=== PATIENT | female | born 1965 | race Caucasian/White ===

== ENCOUNTER → 2024-06-04 | Outpatient (CLI) | payer BC, SELFPAY ==
--- NOTE | 2024-06-04 16:00 | XR_ITS ---
Examination: Carotid arterial duplex scan, ultrasound. Date and time of exam: June 04, 2024 1559 hours INDICATIONS: Dizziness episodes 8 months with ringing sound in the ears Technique: Multiple sonographic images have been obtained of the carotid arteries and vertebral arteries, B-mode/grayscale imaging and Doppler spectral analysis and color flow Peak systolic and diastolic velocities have been recorded. Systolic diastolic ratios have been calculated. Findings: Right peak systolic velocities: Distal internal carotid artery peak systolic velocity is 0.6 M/sec Proximal internal carotid artery peak systolic velocity is 0.4 M/sec Carotid bifurcation peak systolic velocity is 0.5 M/sec External carotid artery peak systolic velocity is 0.6 M/sec Vertebral artery flow is antegrade. Left peak systolic velocities: Distal internal carotid artery peak systolic velocity is 0.7 M/sec Proximal internal carotid artery peak systolic velocity is 0.6 M/sec Carotid bifurcation peak systolic velocity is 0.6 M/sec External carotid artery peak systolic velocity is 0.5 M/sec Vertebral artery flow is antegrade Doppler waveform analysis demonstrates no spectral broadening Impression: Right internal carotid artery demonstrates 0-10% stenosis. Left internal carotid artery demonstrates 0-10% stenosis.
== END | disposition home or self-care (01) ==
PROVIDERS: Referring Provider Family Medicine; Visit Provider Family Medicine
DX: R42 Dizziness and giddiness (principal)
CPT/HCPCS: 93880

== ENCOUNTER 2024-06-17 03:17 | Emergency (ER) | payer BC, SELFPAY ==
[2024-06-17 03:18] VITALS: BMI 24.6
[2024-06-17 03:30] VITALS: BP 160/85; PULSE 73; RESP 19; TEMP 36.4; O2SAT 98
--- NOTE | 2024-06-17 03:31 | EDNOTE_ITS ---
ED Chest Pain RME/HPI General Chief Complaint: Chest Pain Stated Complaint: CHEST PAIN Time Seen by Provider: 06/17/24 03:23 Arrival date/time: 06/17/24 03:17 RME / HPI RME / HPI narrative: This section includes all my notes and documentations, including HPI, PE, and ED course. Deandre Johnson MD HPI: 59yo female with a history of aFib, sleep apnea accompanied by her presents to the ED for a chief complaint of chest pain x 0030. Patient states her pain is intermittent, lasting for 30 seconds at a time. She describes her pain as stabbing in nature, rating her worst pain a 7-9 out of 10. Patient states she woke up at 0030 having significant chest pain, reporting she went to bed feeling normal at 2130. She states her pain progressively got worse, so she came in for evaluation. She reports associated nausea. She denies any vomiting, palpitations, shortness of breath or any other associated symptoms. She is not on any medications. [employer]visor [employer] is Dr. Mcconnell. She currently rates her pain a 3 out of 10 in severity. No other complaints reported. ROS: All negative except as documented in HPI. Physical Exam: General: Alert and oriented. Appears slightly anxious. Eyes: Conjunctivae and lids clear. ENT: No nasal congestion. Neck: Supple. Heart: RRR. Lungs: No respiratory distress. Good air movement. No rhonchi, wheezing, rales. Abdomen: Soft and nontender. Legs: No clubbing, cyanosis, edema. Skin: Warm and dry. Neuro: Alert and oriented X 3. I reviewed all diagnostic test results. My interpretation of the EKG is sinus rhythm with no acute ST changes. Blood tests unremarkable, including negative troponin X 2. At this point, diagnoses include chest pain probably due to anxiety. Treatment here included Xanax 0.25 mg given. Significant improvement noted. Recommended more outpatient cardiac workup. Based on my best medical judgment, made decision no further evaluation or treatment indicated at this time. Patient understands and agrees to the discharge instructions customized and printed, see below. Discharge instructions from Dr. Johnson: 1. After extensive evaluation, there is no life-threatening condition.? Such as heart attack or pulmonary embolism (blood clots in your lungs) or pneumothorax (collapsed lung). 2. Your symptoms may be due to underlying stress or anxiety or nerves.? This is fairly common. 3. Take Xanax as needed.? Whether this helps or not will be valuable information to your private doctors. 4. See a private doctor on 06/24/2024 for recheck and further care. To make sure there is no serious underlying heart condition, ask to help you get more tests for your heart that cannot be done here in the ER.? Such as Holter Monitor (cardiac monitoring at home from a day to even a month), heart stress test (on treadmill or with medication), echocardiogram (imaging of your heart structures), heart catherization (checking for blockages in your heart arteries), and a referral to see a [employer]visor [employer]. 5. Seek immediate medical care with worsening or with any concerns.?? Deandre Johnson MD Related Data Home Medications ?Medication ?Instructions ?Recorded ?Confirmed triamcinolone acetonide 0.1 % 1 applic topical TID PRN dry skin 09/24/23 09/24/23 topical cream / eczema Previous Rx's ?Medication ?Instructions ?Recorded alprazolam 0.25 mg tablet (Xanax) 0.25 mg PO BID PRN a nxiety #10 tabs 06/17/24 Allergies Allergy/AdvReac Type Severity Reaction Status Date / Time No Known Allergies Allergy Verified 02/17/24 21:02 Review of Systems Review of Systems Systems Reviewed: All systems reviewed, normal except as documented ED Exam Narrative Physical exam: As noted in HPI. Course Course Course Narrative: CXR is ordered for determining the etiology of chest pain. Quality Measures none Orders Category Date Time Status EKG (ED ONLY) *Do not use* NOW Care 06/17/24 03:23 Completed EKG (ED Only) Stat Exams 06/17/24 03:23 Ordered BNP [B-Type Natriuretic Peptide] Stat Lab 06/17/24 03:42 Completed CBC Stat Lab 06/17/24 03:42 Completed CMP [Comprehensive Metabolic Panel] Stat Lab 06/17/24 03:42 Completed D-Dimer Stat Lab 06/17/24 03:42 Completed Magnesium Stat Lab 06/17/24 03:42 Completed TSH [Thyroid Stimulating Hormone] Stat Lab 06/17/24 03:42 Completed Troponin I Stat Lab 06/17/24 03:42 Completed Troponin I Stat Lab 06/17/24 04:40 Completed UA, C/S IF [Urinalysis, C/S if Indicated] Stat Lab 06/17/24 03:34 Ordered ALPRazoLAM [Xanax] Med 06/17/24 03:33 Discontinued 0.25 mg PO X1 ONE Aspirin Chew Med 06/17/24 03:33 Discontinued 324 mg PO X1 ONE Vital Signs Vital signs: Vital Signs Temperature 97.6 F 06/17/24 03:30 Pulse Rate 73 06/17/24 03:30 Respiratory Rate 19 06/17/24 03:30 Blood Pressure 160/85 H 06/17/24 03:30 Pulse Oximetry (%) 98 06/17/24 03:30 Oxygen Delivery Method Room Air 06/17/24 03:30 Chest Pain MDM Narrative MDM Narrative:: Scribe Attestation: 06/17/24 Ellie Bains am scribing for and in the presence of Dr. Johnson. Patient data External records reviewed:: [facility] previous records (Per chart review, patient was seen here on 02/17/24 for chest pressure.) Clinical information provided by:: patient Social determinants that could affect healthcare access:: substance use (former tobacco smoker) Patient has the following chronic illnesses:: aFib, sleep apnea How is presenting disease/condition affected by chronic disease/condition?: uneffected by Evaluation data The following diagnostics were reviewed and interpreted by me:: lab results, radiology exam(s) and EKG tracing(s) (My interpretation of the EKG: NSR (80 bpm) with no ST-T changes. Deandre Johnson MD) Lab and/or radiology exams considered but not ordered:: none Interpretation Summary: Chest pain of probable anxiety Medications / Prescriptions Medications or Prescriptions considered but not ordered:: none Medication administrations:: Medication Administration History Discontinued Medications Alprazolam (Alprazolam 0.25 Mg Tablet) 0.25 mg PO X1 ONE Stop: 06/17/24 03:34 Last Admin: 06/17/24 03:49 Dose: 0.25 mg Documented By: RONALD Aspirin (Aspirin 81 Mg Chew) 324 mg PO X1 ONE Stop: 06/17/24 03:34 Last Admin: 06/17/24 03:47 Dose: 324 mg Documented By: RONALD ASA and Xanax Consultations Consultation(s) initiated? (list below): No Diagnosis Chest Pain Differential Diagnosis: pneumothorax, stable angina, unstable angina pectoris, atypical chest pain, st elevation myocardial infarction, costochondritis and chest pain Most likely diagnosis given after review of the tests above:: Chest pain of probable anxiety Admission Indicated Admission indicated?: not indicated Explain why admission is indicated or not indicated:: No criteria for admission Admission Request Was there a request for admission?: No Disposition Plan Disposition Plan: Discharge Discharge Attestation Discharge Attestation: The patient and all family members were given an opportunity to ask questions and understood the discharge instructions. Discharge instructions specifically effects, indications for sooner follow up or return to the emergency department, and the expected course of current diagnosis. Patient condition: Stable Discharge Plan Plan Patient Disposition: HOME (Self Care) Prescriptions/Referrals Prescriptions/Med Rec: New alprazolam [Xanax] 0.25 mg tablet 0.25 mg PO BID PRN (Reason: anxiety) Qty: 10 0RF No Action triamcinolone acetonide 0.1 % Cream 1 applic TOPICAL TID PRN (Reason: dry skin / eczema) Referrals: Mynor Hurt MD [Primary Care Provider] - In 1 week Problem List Clinical Impression: Chest pain Patient/Caregiver Discharge Instructions Discharge Activity: activity as tolerated Education Materials: ED Chest Pain, Uncertain Cause Additional Instructions: Discharge instructions from Dr. Johnson: 1. After extensive evaluation, there is no life-threatening condition.? Such as heart attack or pulmonary embolism (blood clots in your lungs) or pneumothorax (collapsed lung). 2. Your symptoms may be due to underlying stress or anxiety or nerves.? This is fairly common. 3. Take Xanax as needed.? Whether this helps or not will be valuable information to your private doctors. 4. See a private doctor on 06/24/2024 for recheck and further care. To make sure there is no serious underlying heart condition, ask to help you get more tests for your heart that cannot be done here in the ER.? Such as Holter Monitor (cardiac monitoring at home from a day to even a month), heart stress test (on treadmill or with medication), echocardiogram (imaging of your heart structures), heart catherization (checking for blockages in your heart arteries), and a referral to see a Supervisor [employer]. 5. Seek immediate medical care with worsening or with any concerns.?? Print Language: Jordanian Stand Alone Forms: Lili Award Info., Patient Portal Info Letter
[2024-06-17] MEDS: ASPIRIN 81 MG CHEW 324 MG PO (03:47)
[2024-06-17] MEDS: ALPRazoLAM 0.25 MG TABLET PO (03:49)
[2024-06-17 03:50] LABS: Basophils # (Auto) 0.1 Thou/mm3 (0.0-0.2); Basophils % (Auto) 1 % (0-2.5); Eosinophils # (Auto) 0.2 Thou/mm3 (0.0-0.5); Eosinophils % (Auto) 3 % (0-10); Hemoglobin 13.8 g/dL (12.0-16.0); Immature Granulocytes % (Auto) 0 % (0-0); Immature Granulocytes Auto 0.01 Thou/mm3 (0.00-0.00); Lymphocytes # (Auto) 2.7 Thou/mm3 (1.0-4.8); Lymphocytes % (Auto) 43 % (10-50); Mean Corpuscular HGB Conc 33.7 g/dl (31.0-37.0); Mean Corpuscular Hemoglobin 28.9 pg (25.0-35.0); Mean Corpuscular Volume 86 fL (80-100); Monocytes # (Auto) 0.4 Thou/mm3 (0.0-0.8); Monocytes % (Auto) 6 % (0-12); Neutrophils # (Auto) 2.9 Thou/mm3 (1.8-7.7); Neutrophils % (Auto) 47 % (37-80); Nucleated Red Blood Cell % 0 /100 WBC (0); Platelet Count 325 Thou/mm3 (140-440); RDW Standard Deviation 40.3 fL (36.4-46.3); Red Blood Count 4.78 Miln/mm3 (4.00-5.20); White Blood Count 6.2 Thou/mm3 (3.6-11.0)
[2024-06-17 04:05] VITALS: BP 158/76; PULSE 62; RESP 97; TEMP 36.7; O2SAT 97
[2024-06-17 04:05] LABS: B-Type Natriuretic Peptide 41 pg/mL (0-100)
[2024-06-17 04:10] LABS: Alanine Aminotransferase 12 U/L (10-49); Albumin, Serum 4.5 gm/dL (3.4-4.8); Albumin/Globulin Ratio 1.7 (1.2-2.2); Alkaline Phosphatase 59 U/L (46-116); Anion Gap 7 (7-16); Aspartate Amino Transferase 16 U/L (0-34); BUN/Creatinine Ratio 14 Ratio (12-20); Bilirubin,Total 0.4 mg/dL (0.3-1.2); Blood Urea Nitrogen 10 mg/dL (9-23); Calcium 10.1 mg/dL (8.3-10.6); Calcium (Corrected) 10.1 mg/dL (8.5-10.1); Carbon Dioxide 26.8 mMol/L (20.0-31.0); Chloride 112 mMol/L (98-107); Creatinine (Component) 0.7 mg/dL (0.6-1.3); Estimated Creatinine Clearance 89.3 mL/min (>60); Globulin 2.7 gm/dL (2.3-3.5); Glucose 111 mg/dL (74-106); Magnesium 1.9 mg/dL (1.6-2.6); Osmolality,Calculated 290 (275-295); Potassium 4.1 mMol/L (3.4-5.1); Sodium 146 mMol/L (136-145); Thyroid Stimulating Hormone 0.45 uIU/mL (0.55-4.78); Total Protein 7.2 gm/dL (5.7-8.2); Troponin I < 0.020 ng/mL (0.0-0.045); eGFR > 60 See Note
[2024-06-17 04:11] LABS: D-Dimer < 250 ng/mL (<600)
[2024-06-17 05:13] LABS: Troponin I < 0.020 ng/mL (0.0-0.045)
[2024-06-17 05:26] VITALS: BP 140/73; PULSE 75; RESP 15; TEMP 36.7; O2SAT 96
== END 2024-06-17 05:30 | disposition home or self-care (01) ==
PROVIDERS: Emergency Provider Emergency Medicine; PCP Family Medicine
DX: R07.9 Chest pain, unspecified (principal); R11.0 Nausea
CPT/HCPCS: 36415; 80053; 81001; 83735; 83880; 84443; 84484; 85025; 85379; 93005; 99283; A9270

== ENCOUNTER → 2024-08-26 | Outpatient (CLI) | payer BC, SELFPAY ==
[2024-08-26 08:38] LABS: Basophils # (Auto) 0.1 Thou/mm3 (0.0-0.2); Basophils % (Auto) 1 % (0-2.5); Eosinophils # (Auto) 0.2 Thou/mm3 (0.0-0.5); Eosinophils % (Auto) 3 % (0-10); Hematocrit 38.5 % (36.0-46.0); Hemoglobin 12.6 g/dL (12.0-16.0); Immature Granulocytes % (Auto) 1 % (0-0); Immature Granulocytes Auto 0.03 Thou/mm3 (0.00-0.00); Lymphocytes # (Auto) 2.3 Thou/mm3 (1.0-4.8); Lymphocytes % (Auto) 39 % (10-50); Mean Corpuscular HGB Conc 32.7 g/dl (31.0-37.0); Mean Corpuscular Hemoglobin 29.3 pg (25.0-35.0); Mean Corpuscular Volume 90 fL (80-100); Monocytes # (Auto) 0.5 Thou/mm3 (0.0-0.8); Monocytes % (Auto) 8 % (0-12); Neutrophils % (Auto) 49 % (37-80); Nucleated Red Blood Cell % 0 /100 WBC (0); Platelet Count 322 Thou/mm3 (140-440); RDW Standard Deviation 43.8 fL (36.4-46.3)
[2024-08-26 08:49] LABS: T4 (Thyroxine) 6.9 mcg/dL (4.5-10.9)
[2024-08-26 08:50] LABS: Vitamin D 25 Hydroxy Total 20.4 ng/mL (7.3-40.2)
[2024-08-26 08:53] LABS: Alanine Aminotransferase 10 U/L (10-49); Albumin, Serum 4.3 gm/dL (3.4-4.8); Albumin/Globulin Ratio 1.9 (1.2-2.2); Alkaline Phosphatase 59 U/L (46-116); Anion Gap 7 (7-16); Aspartate Amino Transferase 11 U/L (0-34); BUN/Creatinine Ratio 19 Ratio (12-20); Bilirubin,Total 0.4 mg/dL (0.3-1.2); Blood Urea Nitrogen 13 mg/dL (9-23); Calcium 9.4 mg/dL (8.3-10.6); Calcium (Corrected) 9.4 mg/dL (8.5-10.1); Carbon Dioxide 28.2 mMol/L (20.0-31.0); Cardiac Risk Estimate 3.1 RATIO (3.7-5.6); Chloride 109 mMol/L (98-107); Cholesterol 268 mg/dL (132-200); Creatinine (Component) 0.7 mg/dL (0.6-1.3); Globulin 2.3 gm/dL (2.3-3.5); Glucose 97 mg/dL (74-106); HDL Cholesterol 86 mg/dL (40-60); LDL Cholesterol,Calculated 165 mg/dL (0-130); Osmolality,Calculated 286 (275-295); Potassium 4.3 mMol/L (3.4-5.1); Sodium 144 mMol/L (136-145); Total Protein 6.6 gm/dL (5.7-8.2); Triglycerides 83 mg/dL (30-150); eGFR > 60 See Note
== END | disposition home or self-care (01) ==
LOC: COPL 06:43
PROVIDERS: PCP Family Medicine; Referring Provider Family Medicine; Visit Provider Family Medicine
DX: I48.91 Unspecified atrial fibrillation (principal); E04.1 Nontoxic single thyroid nodule; R00.2 Palpitations; E55.9 Vitamin D deficiency, unspecified; J30.9 Allergic rhinitis, unspecified
CPT/HCPCS: 36415; 80053; 80061; 82306; 84436; 84443; 85025

== ENCOUNTER → 2025-03-17 | Outpatient (CLI) | payer BC, SELFPAY ==
--- NOTE | 2025-03-17 | XR_ITS ---
EXAMINATION: PA lateral chest 2 views TECHNIQUE: Upright PA lateral chest 2 views Date and time: March 17, 2025, 11:09 a.m. INDICATIONS: Preop FINDINGS: Normal heart size Minor scarring in the right midlung No lobar pneumonia or pulmonary edema Prominent osteopenia IMPRESSION: No active disease
== END | disposition home or self-care (01) ==
LOC: CDIM 10:43
PROVIDERS: PCP Family Medicine; Referring Provider Physician Assistant; Visit Provider Physician Assistant
DX: Z01.818 Encounter for other preprocedural examination (principal)
CPT/HCPCS: 71046